=== PATIENT | female | born 1980 | race American Indian/Alaskan Native ===

== ENCOUNTER 2017-10-22 12:06 | Outpatient (CLI) | payer OTHER | END 2017-10-22 12:07 | disposition home or self-care (01) | LOC: PF 12:06 | PROVIDERS: ATTEND Internal Medicine | DX: J45.998 Other asthma (principal); I10 Essential (primary) hypertension; R07.9 Chest pain, unspecified; M50.20 Other cervical disc displacement, unspecified cervical region; H91.91 Unspecified hearing loss, right ear | CPT/HCPCS: 94010 ==